=== PATIENT | male | born 1980 | race Caucasian/White ===

== ENCOUNTER 2020-05-28 19:29 | Emergency (ER) | payer SELFPAY ==
[~2020-05-28] VITALS: Ht 180.3 cm; Wt 95.2 kg
[~2020-05-28 19:29] MED LIST: CEPH500 PO; IBUP600 PO; PERM5TC TOP; PRED10 PO; SILSUL1TC TOP
[2020-05-28] MEDS ORDERED: MINO50 PO (21:23)
== END 2020-05-28 21:56 | disposition home or self-care (01) ==
LOC: ER 19:29
DX: L03.116 Cellulitis of left lower limb (principal); F17.200 Nicotine dependence, unspecified, uncomplicated; Z88.8 Allergy status to other drugs, medicaments and biological substances; Z23 Encounter for immunization
CPT/HCPCS: 90471; 90714; 99282

== ENCOUNTER 2022-01-13 20:12 | Emergency (ER) | payer OTHER ==
[~2022-01-13] VITALS: Ht 177.8 cm; Wt 95.2 kg
[~2022-01-13 20:12] MED LIST changes: +MINO50 PO
== END 2022-01-13 22:56 | disposition home or self-care (01) ==
LOC: ER 20:12
DX: S40.851A Superficial foreign body of right upper arm, initial encounter (principal); F17.200 Nicotine dependence, unspecified, uncomplicated; W45.8XXA Other foreign body or object entering through skin, initial encounter
CPT/HCPCS: 10120; 73070; 90471; 90714; 99283-25